=== PATIENT | male | born 1985 | race Caucasian/White ===

== ENCOUNTER 2021-12-23 14:02 | Emergency (ER) | payer OTHER ==
[~2021-12-23] VITALS: Ht 154.9 cm; Wt 78.0 kg
[2021-12-23] MEDS ORDERED: BACITRACIN/POLYMYXIN B SULFATE 30 GM TOPICAL OINT. TP ONE (15:00)
[2021-12-23] MEDS ORDERED: LIDOCAINE MPF 1% 50 MG/5 ML AMP INJ ONE (15:00)
[2021-12-23 15:11] VITALS: BP_SYST 116
--- NOTE | 2021-12-23 15:36 | NUR ---
Patient to ER bed 06 to gown for evaluation. Side rails up.
--- NOTE | 2021-12-23 15:43 | NUR ---
ER DR. MUÑOZ AT THE BEDSIDE EXAMINING PT
[2021-12-23] MEDS ORDERED: DIPH-TET-PERTUS Vaccine 0.5 ML VIAL (ADACEL) I.M. ONE (15:45)
[2021-12-23] MEDS ORDERED: IBUPROFEN 800 MG TABLET PO ONE (15:45)
--- NOTE | 2021-12-23 15:45 | NUR ---
PT CAME IN FROM HOME C/O LAC TO RIGHT 5TH DIGIT, STATES HE CUT IT ON A METAL FAN. BLEEDING CONTROLLED UPON ARRIVAL. PT IS AAOX4, AMBULATORY, VSS
[2021-12-23] MEDS ORDERED: BACI15OI13 TP (15:49)
== END 2021-12-23 15:45 | disposition home or self-care (01) ==
LOC: SED 14:02
DX: S61.216A Laceration without foreign body of right little finger without damage to nail, initial encounter (principal); Z79.899 Other long term (current) drug therapy; W45.8XXA Other foreign body or object entering through skin, initial encounter; Y93.89 Activity, other specified; Y92.89 Other specified places as the place of occurrence of the external cause; Y99.0 Civilian activity done for income or pay
CPT/HCPCS: 12001; 90471; 90715; 99283; J2001

== ENCOUNTER 2022-01-03 15:22 | Emergency (ER) | payer OTHER ==
[~2022-01-03] VITALS: Ht 175.3 cm; Wt 86.2 kg
[~2022-01-03 15:22] MED LIST: BACI15OI13 TP
--- NOTE | 2022-01-03 15:30 | NUR ---
PT CAME FROM HOME WITH CC OF NEEDING SUTURE REMOVAL AFTER 10 DAYS FROM HERE AFTER RIGHT 5TH DIGIT LACERATION. PT IS STABLE, NAD, VSS, AAOx4, DENIES PAIN, NO SWELLING, NO REDNESS, NO DRAINAGE.
[2022-01-03 15:34] VITALS: BP_SYST 126
--- NOTE | 2022-01-03 15:35 | NUR ---
ED MD AT BEDSIDE FOR EVALUATION
--- NOTE | 2022-01-03 15:41 | NUR ---
Pt to bed #8 coming from home c/o suture removal on right pinky. No s/s of infection. Ptis A&Ox4. VSS. Bed in lowest position and sutre removal at bedside.
[2022-01-03 16:14] VITALS: BP_SYST 124
--- NOTE | 2022-01-03 16:14 | NUR ---
Patient given written and verbal discharge instructions and verbalizes understanding. ER MD discussed with patient the results and treatment provided. Patient in stable condition. ID arm band removed. Patient educated on pain management and to follow up with PMD. Pain Scale . Opportunity for questions provided and answered. Medication side effect fact sheet provided.
== END 2022-01-03 16:14 | disposition home or self-care (01) ==
LOC: SED 15:22
DX: S61.216D Laceration without foreign body of right little finger without damage to nail, subsequent encounter (principal); Z48.02 Encounter for removal of sutures; Z79.899 Other long term (current) drug therapy; W45.8XXD Other foreign body or object entering through skin, subsequent encounter
CPT/HCPCS: 99281